=== PATIENT | female | born 1925 | race Caucasian/White ===

== ENCOUNTER 2016-11-30 21:54 | Emergency (ER) | payer MEDICARE ==
[2016-11-30 22:21] LABS: BASOPHIL 0.2 % (0-2); EOSINOPHIL 2.2 % (0-7); HGB 11.7 g/dl (12.5-16.0); LYMPHOCYTE 6.1 % (15-48); MCH 28.1 pg (25.0-31.0); MCHC 32.5 g/dL (32.0-36.0); MCV 86.5 fL (78.0-100.0); MONOCYTE 8.4 % (0-12); MPV 10.2 fL (6.0-9.5); NEUTROPHIL 83.1 % (41-80); PLT 535 K/uL (150-400); RBC 4.16 M/uL (4.20-5.40); RDW 15.3 % (11.5-14.0); WBC 28.7 K/uL (4.0-10.5)
[2016-11-30 22:45] LABS: ALBUMIN 2.3 g/dL (3.4-4.8); BILIRUBIN - TOTAL 0.3 mg/dL (0.1-1.0); GLOBULIN (CALCULATION) 3.5 g/dL (2.2-4.2); POTASSIUM 4.5 mmol/L (3.5-5.1); TOTAL PROTEIN 5.8 g/dL (6.4-8.3)
[2016-11-30 22:51] LABS: LACTIC ACID 1.2 mmol/L (0.5-2.2)
[2016-11-30 23:22] LABS: BAND 7 % (0-10); EOSINOPHIL(M) 8 % (0-7); LYMPHOCYTE(M) 7 % (15-48); MONOCYTE(M) 3 % (0-12); NEUTROPHILS(M) 75 % (41-80); PLATELET ESTIMATE INCREASED; TOTAL CELL COUNT 100
[2016-11-30 23:23] LABS: PLATELET MORPHOLOGY NORMAL
[2016-12-01 03:56] LABS: BILIRUBIN NEGATIVE (NEGATIVE); BLOOD 1+ Ery/uL (NEGATIVE); CLARITY CLEAR (CLEAR); COLOR YELLOW (YELLOW); GLUCOSE (U) NORMAL (NORMAL); KETONE (U) NEGATIVE (NEGATIVE); LEUKOCYTES 2+ Leu/uL (NEGATIVE); NITRITE NEGATIVE (NEGATIVE); PROTEIN NEGATIVE (NEGATIVE); SPECIFIC GRAVITY <=1.005 (1.001-1.030); UROBILINOGEN 0.2 mg/dL (0.2-1.0); pH 7.5 (5.0-9.0)
[2016-12-01 04:02] LABS: BACTERIA 3+; URINARY RBC 20-50; URINARY WBC TNTC
== END 2016-12-01 08:40 | disposition other institution (70) ==
LOC: FER 21:54
PROVIDERS: Emergency Medicine Emergency Medical Services
DX: K85.90 Acute pancreatitis without necrosis or infection, unspecified (principal); K65.1 Peritoneal abscess; I44.7 Left bundle-branch block, unspecified; D72.829 Elevated white blood cell count, unspecified; R19.7 Diarrhea, unspecified; R82.90 Unspecified abnormal findings in urine; E86.9 Volume depletion, unspecified; I10 Essential (primary) hypertension; E89.0 Postprocedural hypothyroidism; E78.5 Hyperlipidemia, unspecified; Z79.82 Long term (current) use of aspirin; Z79.899 Other long term (current) drug therapy; Z90.49 Acquired absence of other specified parts of digestive tract; Z90.710 Acquired absence of both cervix and uterus; D64.9 Anemia, unspecified; N39.0 Urinary tract infection, site not specified; R11.2 Nausea with vomiting, unspecified
CPT/HCPCS: 36415; 71010; 80053; 81001; 82150; 82784; 83605; 83690; 84484; 85025; 87040; 87045; 87046; 87076; 87088; 87186; 87339; 87493; 93005; 96374; J2060; J2543; Q9967